=== PATIENT | female | born 1985 | race Caucasian/White ===

== ENCOUNTER → 2016-11-08 | Outpatient (REF) | payer OTHER | LOC: M LAB REF 09:22 | PROVIDERS: ATTEND Physician Assistant Medical | DX: B34.9 Viral infection, unspecified (principal) ==

== ENCOUNTER → 2017-01-27 | Outpatient (REF) | payer OTHER ==
[2017-01-27 20:41] LABS: MEAN CORPUSCULAR HEMOGLOBIN 29.3 pg (27.0-33.0); MEAN CORPUSCULAR HGB CONC 32.5 g/dl (32.0-36.5); MEAN CORPUSCULAR VOLUME 90.2 fl (80.0-96.0); RED CELL DISTRIBUTION WIDTH 13.2 % (11.5-14.5)
[2017-01-27 20:55] LABS: VITAMIN B12 LEVEL 564 PG/ML (247-911)
[2017-01-27 21:17] LABS: ALBUMIN 4.2 GM/DL (3.2-5.2); ALBUMIN/GLOBULIN RATIO 1.35 (1.00-1.93); ALKALINE PHOSPHATASE 69 U/L (45-117); ALT/SGPT 26 U/L (12-78); ANION GAP 7 MEQ/L (8-16); AST/SGOT 16 U/L (15-37); BILIRUBIN,TOTAL 0.5 MG/DL (0.2-1.0); BLOOD UREA NITROGEN 17 MG/DL (7-18); CALCIUM LEVEL 9.3 MG/DL (8.5-10.1); CARBON DIOXIDE LEVEL 31 MEQ/L (21-32); CHLORIDE LEVEL 103 MEQ/L (98-107); CREATININE FOR GFR 0.83 MG/DL (0.55-1.02); FREE T4 0.93 NG/DL (0.76-1.46); GLOMERULAR FILTRATION RATE > 60.0 (>60); GLUCOSE, FASTING 79 MG/DL (70-105); POTASSIUM SERUM 4.1 MEQ/L (3.5-5.1); SODIUM LEVEL 141 MEQ/L (136-145); TOTAL PROTEIN 7.3 GM/DL (6.4-8.2)
== END ==
LOC: M SFHCLERA 16:06
PROVIDERS: ATTEND Family Medicine
DX: R51 Headache (principal); R41.3 Other amnesia; R10.84 Generalized abdominal pain

== ENCOUNTER → 2017-02-12 | Outpatient (CLI) | payer OTHER ==
--- NOTE | 2017-02-12 12:49 | REP ---
REASON: Generalized abdominal pain. Question ventral rent. Multiple sonographic images superior to the umbilicus show a potential rent difficult to evaluate by ultrasound. This appears to have mesentery within it. The aperture measures approximately 6 mm. IMPRESSION: Possible tiny ventral hernia. CT is recommended for confirmation. Signed by Timothy Bonilla DO 02/12/2017 02:47 P
== END ==
LOC: M RAD 08:40
PROVIDERS: ATTEND Family Medicine
DX: K43.9 Ventral hernia without obstruction or gangrene (principal)

== ENCOUNTER → 2017-03-12 | Outpatient (CLI) | payer MEDICAID, OTHER ==
--- NOTE | 2017-03-12 13:34 | REP ---
MR BRAIN WITHOUT CONTRAST: HISTORY: Memory difficulty. COMPARISON: 04/20/2013. There are no areas of abnormal signal intensity in the brain. There is no intraparenchymal hemorrhage, infarct, mass, or midline shift. The ventricular system is normal in appearance. There is no extracerebral collection. Mucosal thickening is present in the ethmoid and left maxillary sinuses. IMPRESSION: There is no intracranial lesion. Signed by Trent Grossman MD 03/12/2017 01:37 P
== END ==
LOC: M PLARAD 11:24
PROVIDERS: ATTEND Family Medicine
DX: R41.3 Other amnesia (principal)

== ENCOUNTER 2017-05-14 06:04 | Day surgery (SDC) | payer OTHER ==
[~2017-05-14] VITALS: Ht 172.7 cm; Wt 73.0 kg
[2017-05-14] MEDS ORDERED: LIDOCAINE 1% MDV 20ML VIAL SQ ONE (06:30)
[2017-05-14] MEDS ORDERED: LR 1,000 ML IV SCH ×2 (06:30→10:00)
[2017-05-14] MEDS ORDERED: LR 1,000 ML IV ONE (06:30)
[2017-05-14] MEDS ORDERED: IBUP-1114 PO (06:32)
[2017-05-14] MEDS ORDERED: SCOPOLAMINE 1.5 MG TRANSDERMAL As Ordered ONE (06:51)
[2017-05-14] MEDS ORDERED: ONDANSETRON 4MG/2ML VIAL (J2405) As Ordered ONE ×2 (06:55→09:48)
[2017-05-14] MEDS ORDERED: PROPOFOL 200 MG/20 ML VIAL As Ordered ONE (06:55)
[2017-05-14] MEDS ORDERED: ROCURONIUM BROMIDE 50 MG/5 ML VIAL/SYRINGE As Ordered ONE (06:55)
[2017-05-14] MEDS ORDERED: LIDOCAINE 2% INJ 100 MG/5 ML SDV (FOR ANES.) As Ordered ONE (06:55)
[2017-05-14] MEDS ORDERED: dexameTHASONE 4 MG/ML 1ML VIAL (J1100) As Ordered ONE (06:55)
[2017-05-14 06:58] LABS: CONTROL LINE UCG INT CTR LINE PRESENT
[2017-05-14] MEDS ORDERED: SCOPOLAMINE 1.5 MG TRANSDERMAL TOP ONE (07:00)
[2017-05-14] MEDS ORDERED: MIDAZOLAM INJ 2 MG/2 ML VIAL (J2250) As Ordered ONE (07:06)
[2017-05-14] MEDS ORDERED: fentaNYL 250 MCG/5 ML INJECTION (J3010) As Ordered ONE (07:06)
[2017-05-14] MEDS ORDERED: BUPIVACAINE HCL 0.25% 30 ML VIAL As Ordered ONE ×2 (07:15→07:48)
[2017-05-14] MEDS ORDERED: LIDOCAINE 1% SDV INJ 30 ML VIAL As Ordered ONE (07:15)
[2017-05-14] MEDS ORDERED: GLYCOPYRROLATE INJ 0.2 MG/ML 2 ML VIAL As Ordered ONE (08:33)
[2017-05-14] MEDS ORDERED: NEOSTIGMINE 1MG/ML 5 ML SYRINGE (J2710) As Ordered ONE (08:33)
[2017-05-14] MEDS ORDERED: KETOROLAC 60 MG/2 ML VIAL (J1885) As Ordered ONE (08:40)
[2017-05-14] MEDS ORDERED: HYDROmorphone HCL 2 MG/ML 1ML VIAL (J1170) As Ordered ONE (09:01)
--- NOTE | 2017-05-14 09:14 | ROOPDOC ---
[facility] Report Of Operation Report of Operation DATE OF PROCEDURE: 05/14/17 PREPROCEDURE DIAGNOSES: umbilical hernia. POSTPROCEDURE DIAGNOSES: umbilical hernia PROCEDURE: Laparoscopic Umbilical Hernia Repair. SURGEON: Isamar Rivera MD co-surgeon: Joel Rg MD ANESTHESIA: general. ESTIMATED BLOOD LOSS: Approximately 10 mL. COMPLICATIONS: none REMARKS: PROCEDURE NOTE: A concurrent procedure for bilateral tubal ligation is performed by Dr. Rg. Patient has a small subcentimeter fascial defect just above the umbilicus. There was some incarcerated preperitoneal fat tissue that was reduced back into the abdomen. Moderate diastases of upper midline muscle with thinning of the midline secondary to this but no clear hernia defect on the upper abdomen. DESCRIPTION OF PROCEDURE: She was given a dose of Ancef 2 g IV preoperatively for wound prophylaxis. Patient was brought to the operating room, placed supine on the table. Sequential compression device placed for DVT prophylaxis. General endotracheal anesthesia started. The abdomen prepped and draped in usual sterile fashion. After a surgical timeout, we began our surgery Entry into the abdomen done via a left upper quadrant subcostal incision. A Veress needle inserted into the abdomen. Proper placement confirmed with saline drop technique. CO2 insufflation done to a pressure of 15 mmHg. Using the same incision 5 mm Visiport was placed under direct vision of the laparoscope. Diagnostic laparoscopy the nodularity above the umbilical cleft was noted. Some preperitoneal fat tissue was reduced back into the abdomen. There is moderate thickening of the midline on the upper abdomen also on the lower abdomen secondary to diastases. After clearing out the area where the nodularity was found a small subcentimeter fascial defect is noted. This was mildly enlarged to fully reduce back the preperitoneal contents into the abdomen. A second 8 mm working port was placed over the left lower quadrant area. At this point Dr. Rg perform the bilateral upper scopic tubal ligation. He will separately dictate the details of the procedure. After the tubal ligation I continued on with my surgery. The contents of the hernia dissected free. The surrounding tissues were freed from the hernia edge. The lower portion of the falciform ligament was detached from the abdominal wall. I look for semblance of another hernia over the area did not find any fascial defect.. There was a thin fascial bridge partially covering the area of the defect just above the umbilicus this was opened up to evaluate the tissues around the defect into fully reduced the contents of the hernia. He also enlarged the fascial defect to fully reduce the preperitoneal fat tissue. In the end we ended up with a defect about 1.5 cm. This was located just above the umbilical skin cleft which is also thinned out. I chose a 9 cm Parietex Composite round mesh. Transabdominal sutures placed at this 6 and 12 oclock position at the edge of the mesh. The rough side of the mesh was marked for identification inside the abdomen. This is rolled tightly and placed into the abdomen. This was positioned to centered on the hernia defect. Transabdominal suture passer used to retrieve the sutures to position the mesh. Once adequate overlap of the mesh to the hernia defect was ensured. 2 rows of secure strap Vicryl tacks then placed to secure the mesh to the abdominal wall. The outer tacks were at the edge of the mesh and the inner tacks were chest outside of the hernia defect. We inspected the abdomen for hemostasis. Surveyed the abdomen for any injury. Once assured, the abdomen was deflated and all ports removed. Skin incisions closed with 4-0 Monocryl subcuticular fashion. Steri-Strips gauze dressing and Tegaderm used for dressing at the incisions. Patients promptly awake and extubated and brought to the recovery room in stable condition. All counts of sponges and instruments verified to be correct. DWAYNE RIVERA MD May 14, 2017 09:14
[2017-05-14] MEDS ORDERED: fentaNYL 100 MCG/2 ML INJECTION (J3010) As Ordered ONE (09:48)
[2017-05-14] MEDS: fentaNYL 100 MCG/2 ML INJECTION (J3010) IV PRN ×2 (09:50→09:58)
[2017-05-14] MEDS ORDERED: PERCOCET 5MG/325MG TAB PO PRN (10:00)
[2017-05-14] MEDS ORDERED: KETOROLAC 30 MG/ML VIAL (J1885) IV PRN (10:00)
[2017-05-14] MEDS ORDERED: HYDROmorphone HCL 1 MG/ML SYRINGE (J1170) IV PRN (10:00)
[2017-05-14] MEDS ORDERED: NORCO, ANEXSIA 5/325MG TABLET (HYDROcodone/ACETAMINOPHEN) PO PRN ×2 (10:00)
[2017-05-14] MEDS ORDERED: ONDANSETRON 4MG/2ML VIAL (J2405) IV PRN ×2 (10:00)
[2017-05-14 14:15] VITALS: BP 118/60
--- NOTE | 2017-05-15 08:16 | RO ---
DATE OF PROCEDURE: 05/14/2017 PREPROCEDURE DIAGNOSIS: Undesired fertility. POSTPROCEDURE DIAGNOSIS: Undesired fertility. PROCEDURE: Laparoscopic tubal ligation. SURGEON: Dr. Trent Rg FOOD AND BEVERAGE COORDINATOR: ANESTHESIA: General endotracheal. ESTIMATED BLOOD LOSS: Minimal. FINDINGS: Normal appearing pelvis, normal uterus, fallopian tubes and ovaries. Small umbilical hernia noted. COMPLICATIONS: None. DESCRIPTION OF PROCEDURE: The patient was taken to the operating room where general endotracheal anesthesia was induced. She was prepped and draped in a sterile fashion in the dorsal lithotomy position. The procedure was initiated by Dr. Rui Rivera who was repairing an umbilical hernia at the same time as the tubal sterilization procedure. For details of the hernia repair as well as insertion of the laparoscopic ports, please see Dr. Rivera's note. A blunt probe was used to survey pelvic structures. A Falope Ring was applied to the mid portion of the left fallopian tube without difficulty. The right fallopian tube was noted to be mildly dilated. Attempt was made to place a Falope Ring on the right fallopian tube; however, transection of the tube occurred and the Falope Ring was unable to be applied. Filshie clips were then utilized. A Filshie clip was placed at the mid portion of each fallopian tube without difficulty. An excellent application was noted. The Filshie clip applicator was removed. The remainder of the procedure was completed by Dr. Rivera.
== END 2017-05-14 14:15 | disposition home or self-care (01) ==
LOC: M SDC 06:04
PROVIDERS: ATTEND Surgery
DX: K42.9 Umbilical hernia without obstruction or gangrene (principal); Z30.2 Encounter for sterilization; K58.9 Irritable bowel syndrome, unspecified; R06.83 Snoring; Z88.5 Allergy status to narcotic agent; Z91.013 Allergy to seafood
CPT/HCPCS: 36415; 49652; 58671; 84703; 85014; 85018; C1781

== ENCOUNTER 2017-09-24 23:44 | Emergency (ER) | payer OTHER ==
[~2017-09-24] VITALS: Ht 172.7 cm; Wt 75.0 kg
[2017-09-24 23:44] VITALS: BP 114/68
[~2017-09-24 23:44] MED LIST: IBUP-1114 PO
== END 2017-09-25 02:19 | disposition left against medical advice (07) ==
LOC: M ED 23:44
DX: Z53.21 Procedure and treatment not carried out due to patient leaving prior to being seen by health care provider (principal)

== ENCOUNTER → 2018-02-25 | Outpatient (CLI) | payer OTHER, MEDICAID | LOC: M LRY 11:20 | DX: M25.532 Pain in left wrist (principal) | CPT/HCPCS: 73110 ==

== ENCOUNTER → 2019-01-26 | Outpatient (REF) | payer OTHER ==
[2019-01-27 10:17] LABS: HSV TYPE I IgG SPECIFIC >62.20 index (0.00-0.90); HSV TYPE II IgG SPECIFIC <0.91 index (0.00-0.90)
[2019-01-27 10:52] LABS: HIV 1&2 SCREEN CENTAUR NEGATIVE (NEGATIVE)
== END ==
LOC: M LAB REF 12:08
PROVIDERS: ATTEND Nurse Practitioner Women's Health
DX: O92.6 Galactorrhea (principal); Z72.51 High risk heterosexual behavior

== ENCOUNTER → 2020-11-11 | Outpatient (CLI) | payer OTHER ==
[2020-11-11 13:09] LABS: BASO % 0.3 % (0.0-1.0); EOS # 0.2 10^3/uL (0.0-0.5); EOS % 3.6 % (0.0-3.0); HEMATOCRIT 40.9 % (36.0-47.0); HEMOGLOBIN 13.2 g/dl (12.0-15.5); LYMPH # 1.9 10^3/uL (1.5-5.0); LYMPH % 32.2 % (24.0-44.0); MEAN CORPUSCULAR HEMOGLOBIN 28.3 pg (27.0-33.0); MEAN CORPUSCULAR HGB CONC 32.3 g/dl (32.0-36.5); MEAN CORPUSCULAR VOLUME 87.6 fl (80.0-96.0); MONO # 0.4 10^3/uL (0.0-0.8); MONO % 7.1 % (0.0-5.0); NEUTROPHILS # 3.3 10^3/uL (1.5-8.5); NEUTROPHILS % 56.5 % (36.0-66.0); PLATELET COUNT, AUTOMATED 187 10^3/uL (150-450); RED BLOOD COUNT 4.67 10^6/uL (4.00-5.40); WHITE BLOOD COUNT 5.8 10^3/uL (4.0-10.0)
[2020-11-11 14:37] LABS: ALT/SGPT 21 U/L (12-78); BILIRUBIN,TOTAL 0.4 MG/DL (0.2-1.0); BLOOD UREA NITROGEN 17 MG/DL (7-18); CALCIUM LEVEL 9.1 MG/DL (8.5-10.1); CARBON DIOXIDE LEVEL 26 MEQ/L (21-32); CHLORIDE LEVEL 108 MEQ/L (98-107); GLOMERULAR FILTRATION RATE > 60.0 (>60); GLUCOSE, FASTING 88 MG/DL (70-100); POTASSIUM SERUM 4.2 MEQ/L (3.5-5.1); SODIUM LEVEL 141 MEQ/L (136-145); TOTAL PROTEIN 7.1 GM/DL (6.4-8.2); VITAMIN B12 LEVEL 973 PG/ML (247-911)
== END ==
LOC: M LAB 12:04
PROVIDERS: ATTEND Family Medicine
DX: R43.2 Parageusia (principal)

== ENCOUNTER → 2020-11-16 | Outpatient (CLI) | payer OTHER | LOC: M LAB 12:38 | PROVIDERS: ATTEND Family Medicine | DX: R43.2 Parageusia (principal) ==

== ENCOUNTER → 2020-11-25 | Outpatient (CLI) | payer OTHER ==
[2020-11-25 17:21] LABS: BASO % 0.3 % (0.0-1.0); EOS # 0.3 10^3/uL (0.0-0.5); EOS % 4.5 % (0.0-3.0); HEMOGLOBIN 12.7 g/dl (12.0-15.5); LYMPH # 2.3 10^3/uL (1.5-5.0); LYMPH % 34.9 % (24.0-44.0); MEAN CORPUSCULAR HEMOGLOBIN 28.1 pg (27.0-33.0); MEAN CORPUSCULAR HGB CONC 31.8 g/dl (32.0-36.5); MEAN CORPUSCULAR VOLUME 88.5 fl (80.0-96.0); MONO # 0.5 10^3/uL (0.0-0.8); MONO % 7.4 % (2.0-8.0); NEUTROPHILS # 3.4 10^3/uL (1.5-8.5); NEUTROPHILS % 52.6 % (36.0-66.0); PLATELET COUNT, AUTOMATED 199 10^3/uL (150-450); RED BLOOD COUNT 4.52 10^6/uL (4.00-5.40); WHITE BLOOD COUNT 6.5 10^3/uL (4.0-10.0)
[2020-11-25 18:03] LABS: ERYTHROCYTE SEDIMENTATION RATE 3 mm/hr (0-20)
== END ==
LOC: M LAB 16:52
PROVIDERS: ATTEND Family Medicine
DX: R76.8 Other specified abnormal immunological findings in serum (principal)

== ENCOUNTER → 2021-02-03 | Outpatient (REF) | payer OTHER ==
[2021-02-03 12:25] LABS: APPEARANCE, URINE CLEAR (CLEAR); BACTERIA, URINE AUTO NEGATIVE (NEGATIVE); BILIRUBIN, URINE AUTO NEGATIVE (NEGATIVE); BLOOD, URINE BLOOD 1+ (NEGATIVE); COLOR, URINE YELLOW (YELLOW); GLUCOSE, URINE (UA) AUTO NEGATIVE (NEGATIVE); KETONE, URINE AUTO NEGATIVE (NEGATIVE); LEUKOCYTE ESTERASE, URINE AUTO NEGATIVE (NEGATIVE); NITRITE, URINE AUTO NEGATIVE (NEGATIVE); PROTEIN, URINE AUTO NEGATIVE (NEGATIVE); RBC, URINE AUTO 0 /HPF (0-3); SPECIFIC GRAVITY URINE AUTO 1.016 (1.002-1.035); SQUAMOUS EPITHELIAL CELL UR AU 1 /HPF (0-6); UROBILINOGEN, URINE AUTO 0.2 mg/dL (0.0-2.0); WBC, URINE AUTO 0 /HPF (0-3)
[2021-02-03 14:03] LABS: TOTAL PROTEIN,RANDOM URINE 6.4 MG/DL (0.0-12.0)
[2021-02-03 16:28] LABS: TOTAL 25(OH) VITAMIN D 19.4 NG/ML (30.0-100.0)
== END ==
LOC: M SFHCRHEU 09:53
PROVIDERS: ATTEND Internal Medicine
DX: R76.8 Other specified abnormal immunological findings in serum (principal)

== ENCOUNTER → 2021-02-28 | Outpatient (CLI) | payer OTHER ==
--- NOTE | 2021-03-04 14:59 | SLEEPCENT ---
DIAGNOSTIC HOME SLEEP STUDY DATE: 02/28/2021 ORDERED BY: Lindsey Sam M.D. Diagnostic home sleep testing was performed due to concern for the obstructive sleep apnea syndrome in this patient with a history of fatigue. For testing, a nocturnal T3 respiratory monitoring device was used. Continuous record was made of pulse, oxygen saturation, air flow, chest and abdominal strain, and body position. 9 hours and 59 minutes of data were reviewed. There were 9 hours and 1 minute marked as time in bed. During the interval marked time in bed, there were 40 respiratory events identified of 10 seconds in duration or greater for a respiratory event index 4.4. The events were more frequent in the supine posture. Baseline pulse rate was 58. Pulse rate range 42 to 96. Baseline saturation was 95%. Saturations fell to 92%. Testing was performed in both the supine and non-supine positions. IMPRESSION: Borderline diagnostic home sleep testing with respiratory patterning and respiratory event index of 4.4 is suggestive of the obstructive sleep apnea syndrome. Generally greater than 5 events/hr. is considered diagnostic in symptomatic patients who undergo in-lab testing. RECOMMENDATION: As the events were associated with supine posture, sleep position retraining for avoidance of the supine posture is recommended. Should sleep symptoms persist, referral for formal nocturnal polysomnography may be reasonable, as this type of testing is more sensitive to identify mild obstructive sleep apneic disease. AD
== END ==
LOC: M SLEEP HO 09:08
PROVIDERS: ATTEND Internal Medicine
DX: R53.83 Other fatigue (principal)

== ENCOUNTER → 2021-03-05 | Outpatient (CLI) | payer OTHER ==
--- NOTE | 2021-03-05 11:36 | REPPI ---
INDICATION: S89.91XA INJURY OF RIGHT KNEE, INITIAL ENCOUNTER COMPARISON: None. TECHNIQUE: AP, lateral, bilateral oblique and sunrise views. FINDINGS: The osseous structures and joint spaces are intact and normal. There is no evidence for acute fracture or dislocation. No joint effusion is appreciated. Surrounding soft tissues are unremarkable. No subcutaneous emphysema or radiodense foreign body. IMPRESSION: Normal examination. No acute fracture or dislocation. <Electronically signed by Sai Stoddard > 03/05/21 [id number]
== END ==
LOC: M PLAIMG 11:10
PROVIDERS: ATTEND Nurse Practitioner Family
DX: S89.91XA Unspecified injury of right lower leg, initial encounter (principal); W18.30XA Fall on same level, unspecified, initial encounter; Y92.009 Unspecified place in unspecified non-institutional (private) residence as the place of occurrence of the external cause

== ENCOUNTER → 2021-04-29 | Outpatient (CLI) | payer OTHER ==
--- NOTE | 2021-04-29 18:41 | REP ---
INDICATION: UNSPECIFIED INJURY OF LEFT FOOT, INITIAL ENCOUNTER. COMPARISON: None. TECHNIQUE: Four views FINDINGS: Lateral view shows no heel spur. Talus and calcaneus without fracture or focal lesion. There articulations with the tarsal bones were unremarkable tarsal bones and metatarsals are also without fracture or focal lesion. The MTP, IP joints and the phalanges are without definite fracture. Incidental note is made of fusion of the middle and distal phalanges of the 5th toe, a common anatomic variation. IMPRESSION: No visible or displaced fracture, subluxation or focal bone lesion about the left foot <Electronically signed by Torin Bolton > 04/29/21 [id number]
== END ==
LOC: M PLAIMG 15:37
PROVIDERS: ATTEND Nurse Practitioner Family
DX: S99.922A Unspecified injury of left foot, initial encounter (principal); W18.30XA Fall on same level, unspecified, initial encounter; Y92.009 Unspecified place in unspecified non-institutional (private) residence as the place of occurrence of the external cause

== ENCOUNTER → 2021-05-20 | Outpatient (REF) | payer OTHER ==
[2021-05-20 17:37] LABS: BASO % 0.5 % (0.0-1.0); EOS # 0.1 10^3/uL (0.0-0.5); EOS % 1.9 % (0.0-3.0); HEMATOCRIT 43.2 % (36.0-47.0); HEMOGLOBIN 14.2 g/dl (12.0-15.5); LYMPH # 1.9 10^3/uL (1.5-5.0); LYMPH % 31.9 % (24.0-44.0); MEAN CORPUSCULAR HEMOGLOBIN 29.2 pg (27.0-33.0); MEAN CORPUSCULAR HGB CONC 32.9 g/dl (32.0-36.5); MEAN CORPUSCULAR VOLUME 88.9 fl (80.0-96.0); MONO # 0.5 10^3/uL (0.0-0.8); MONO % 8.3 % (2.0-8.0); NEUTROPHILS # 3.4 10^3/uL (1.5-8.5); NEUTROPHILS % 57.1 % (36.0-66.0); PLATELET COUNT, AUTOMATED 196 10^3/uL (150-450); RED BLOOD COUNT 4.86 10^6/uL (4.00-5.40); WHITE BLOOD COUNT 5.9 10^3/uL (4.0-10.0)
[2021-05-20 18:15] LABS: FREE T4 0.89 NG/DL (0.76-1.46); HCG, SERUM QUANTITATIVE < 1.0 MIU/ML
[2021-05-20 18:18] LABS: LUTEINIZING HORMONE 6.5 mIU/mL
[2021-05-20 18:19] LABS: FOLLICLE STIMULATING HORMONE 7.9 mIU/mL
== END ==
LOC: M LAB REF 17:18
PROVIDERS: ATTEND Obstetrics & Gynecology
DX: N92.0 Excessive and frequent menstruation with regular cycle (principal)

== ENCOUNTER → 2021-06-05 | Outpatient (CLI) | payer OTHER ==
--- NOTE | 2021-06-06 05:39 | REP ---
INDICATION: CERVICALGIA COMPARISON: None. TECHNIQUE: AP, lateral, and swimmers views. FINDINGS: Alignment and kyphosis is maintained. Vertebral bodies intact. No acute fracture / compression injury or subluxation. No degenerative changes. Paravertebral soft tissues are normal. IMPRESSION: Normal thoracic spine series. <Electronically signed by Sai Stoddard > 06/06/21 [id number]
--- NOTE | 2021-06-06 05:42 | REP ---
INDICATION: CERVICALGIA. COMPARISON: None. TECHNIQUE: AP, lateral, flexion/extension, bilateral oblique, and open-mouth views of the cervical spine FINDINGS: Alignment and lordosis maintained. Vertebral bodies including posterior elements and spinous processes are intact. No acute fracture/compression injury or subluxation. Disc spaces are relatively symmetric and well maintained although mild disc space narrowing at C7-T1 cannot be excluded. Neural foramen are patent bilaterally. Open mouth view demonstrates normal C1-C2 articulation and odontoid process. IMPRESSION: Mild minimal disc space narrowing at C7-T1 cannot be excluded. Otherwise normal cervical spine radiograph series. <Electronically signed by Sai Stoddard > 06/06/21 [id number]
== END ==
LOC: M PLALAB 15:51
PROVIDERS: ATTEND Family Medicine
DX: M54.2 Cervicalgia (principal)

== ENCOUNTER → 2021-07-28 | Outpatient (REF) | payer OTHER | LOC: M SFHCPLAZ 13:08 | PROVIDERS: ATTEND Physician Assistant | DX: R05.9 Cough, unspecified (principal) ==

== ENCOUNTER → 2021-09-08 | Outpatient (REF) | payer OTHER | LOC: M SFHCRHEU 10:32 | PROVIDERS: ATTEND Internal Medicine | DX: E55.9 Vitamin D deficiency, unspecified (principal) ==

== ENCOUNTER → 2022-03-16 | Outpatient (REF) | payer OTHER ==
[2022-03-17 23:09] LABS: ANA (HEP2) Positive (.)
== END ==
LOC: M SFHCRHEU 11:37
PROVIDERS: ATTEND Internal Medicine
DX: R76.8 Other specified abnormal immunological findings in serum (principal); E55.9 Vitamin D deficiency, unspecified

== ENCOUNTER → 2022-12-17 | Outpatient (CLI) | payer OTHER ==
[~2022-12-17] MED LIST changes: +AMIT25TA17 PO; +DICY10CA13 PO; +SERT25TA21 PO
== END ==
LOC: M PLALAB 11:46
PROVIDERS: ATTEND Student in an Organized Health Care Education/Training Program
DX: S89.92XA Unspecified injury of left lower leg, initial encounter (principal); X58.XXXA Exposure to other specified factors, initial encounter; Y92.9 Unspecified place or not applicable; Y93.9 Activity, unspecified; Y99.9 Unspecified external cause status

== ENCOUNTER → 2022-12-24 | Outpatient (CLI) | payer OTHER | LOC: M LABSMTC 08:59 | PROVIDERS: ATTEND Anesthesiology | DX: Z01.812 Encounter for preprocedural laboratory examination (principal) ==

== ENCOUNTER 2022-12-29 10:54 | Day surgery (SDC) | payer OTHER ==
[~2022-12-29] VITALS: Ht 172.7 cm; Wt 99.2 kg
[~2022-12-29 10:54] MED LIST changes: +NS 1,000 ML IV ONE
[2022-12-29] MEDS ORDERED: fentaNYL 100 MCG/2 ML INJECTION As Ordered ONE (13:33)
[2022-12-29] MEDS ORDERED: propofoL 200 MG/20 ML VIAL As Ordered ONE ×3 (13:34→13:58)
[2022-12-29] MEDS ORDERED: LIDOCAINE 2% 100MG/5ML SDV (FOR ANES.) As Ordered ONE (13:34)
[2022-12-29 14:25] VITALS: BP 112/89
== END 2022-12-29 14:36 | disposition home or self-care (01) ==
LOC: M OPP 10:54
PROVIDERS: ATTEND Internal Medicine Gastroenterology
DX: K64.8 Other hemorrhoids (principal); K63.89 Other specified diseases of intestine; K92.1 Melena; R12 Heartburn; G47.30 Sleep apnea, unspecified; F32.9 Major depressive disorder, single episode, unspecified; Z79.899 Other long term (current) drug therapy; Z88.5 Allergy status to narcotic agent; Z91.013 Allergy to seafood; Z80.1 Family history of malignant neoplasm of trachea, bronchus and lung
CPT/HCPCS: 43239; 45380; 88305; J3010

== ENCOUNTER → 2023-01-15 | Outpatient (CLI) | payer OTHER ==
[~2023-01-15] MED LIST changes: -NS 1,000 ML IV ONE
== END ==
LOC: M PLARAD 12:40
PROVIDERS: ATTEND Orthopaedic Surgery
DX: M25.562 Pain in left knee (principal); M23.307 Other meniscus derangements, unspecified meniscus, left knee; M25.462 Effusion, left knee; M71.22 Synovial cyst of popliteal space [Baker], left knee; M17.12 Unilateral primary osteoarthritis, left knee; M94.262 Chondromalacia, left knee

== ENCOUNTER → 2024-10-26 | Outpatient (CLI) | payer OTHER, SELFPAY ==
[~2024-10-26] MED LIST changes: -AMIT25TA17 PO; +AMIT25TA19 PO; +DICY-61 PO; -DICY10CA13 PO
[2024-10-26 14:21] LABS: BASO % 0.6 % (0.0-1.0); EOS # 0.2 10^3/uL (0.0-0.5); EOS % 4.3 % (0.0-3.0); HEMATOCRIT 41.8 % (36.0-47.0); HEMOGLOBIN 13.7 g/dl (12.0-15.5); LYMPH # 1.9 10^3/uL (1.5-5.0); LYMPH % 35.3 % (24.0-44.0); MEAN CORPUSCULAR HEMOGLOBIN 28.8 pg (27.0-33.0); MEAN CORPUSCULAR HGB CONC 32.8 g/dl (32.0-36.5); MEAN CORPUSCULAR VOLUME 87.8 fl (80.0-96.0); MONO # 0.5 10^3/uL (0.0-0.8); MONO % 8.7 % (2.0-8.0); NEUTROPHILS # 2.8 10^3/uL (1.5-8.5); NEUTROPHILS % 50.7 % (36.0-66.0); PLATELET COUNT, AUTOMATED 221 10^3/uL (150-450); RED BLOOD COUNT 4.76 10^6/uL (4.00-5.40); WHITE BLOOD COUNT 5.4 10^3/uL (4.0-10.0)
[2024-10-26 14:50] LABS: ALBUMIN 3.9 G/DL (3.2-5.2); ALKALINE PHOSPHATASE 70 U/L (35-104); ALT/SGPT 26 U/L (7.0-40); AST/SGOT 11 U/L (<34); BILIRUBIN,TOTAL 0.4 MG/DL (0.3-1.2); BLOOD UREA NITROGEN 24 MG/DL (9-23); CALCIUM LEVEL 9.4 MG/DL (8.5-10.1); CARBON DIOXIDE LEVEL 30 MMOL/L (20-31); CHLORIDE LEVEL 104 MMOL/L (98-107); CHOLESTEROL LEVEL 207 MG/DL (<200); CHOLESTEROL RISK RATIO 2.74 (<5); CREATININE FOR GFR 0.82 MG/DL (0.55-1.30); GLOMERULAR FILTRATION RATE > 60.0 (>60); GLUCOSE, FASTING 76 MG/DL (60-100); HDL CHOLESTEROL 75.3 MG/DL (>40); LDL CHOLESTEROL 91.7 MG/DL (<100); NON-HDL-C 131.7 MG/DL; POTASSIUM SERUM 4.4 MMOL/L (3.5-5.1); SODIUM LEVEL 140 MMOL/L (136-145); TOTAL PROTEIN 7.1 G/DL (5.7-8.2); TRIGLYCERIDES LEVEL 200 MG/DL (<150)
[2024-10-26 14:51] LABS: FOLLICLE STIMULATING HORMONE 7.7 mIU/ML; THYROID STIMULATING HORMONE 1.926 uIU/ML (0.55-4.78)
[2024-10-26 14:52] LABS: LUTEINIZING HORMONE 3.6 mIU/ML; PROLACTIN 6.64 NG/ML
[2024-10-26 14:53] LABS: TOTAL 25(OH) VITAMIN D 27.1 NG/ML (20.0-100.0)
[2024-10-26 15:20] LABS: HCG, SERUM QUALITATIVE NEGATIVE (NEGATIVE)
[2024-10-26 16:00] LABS: HEMOGLOBIN A1c 5.2 % (4.0-6.0)
== END ==
LOC: M PLALAB 11:35
PROVIDERS: ATTEND Family Medicine
DX: Z00.00 Encounter for general adult medical examination without abnormal findings (principal); N92.6 Irregular menstruation, unspecified; R79.89 Other specified abnormal findings of blood chemistry

== ENCOUNTER → 2025-10-02 | Outpatient (REF) | payer OTHER ==
[2025-10-02 17:33] LABS: BASO # 0.0 10^3/uL (0.0-0.2); BASO % 0.5 % (0.0-1.0); EOS # 0.2 10^3/uL (0.0-0.5); EOS % 4.2 % (0.0-3.0); LYMPH # 1.9 10^3/uL (1.5-5.0); LYMPH % 33.0 % (24.0-44.0); MONO # 0.5 10^3/uL (0.0-0.8); MONO % 8.6 % (2.0-8.0); NEUTROPHILS # 3.0 10^3/uL (1.5-8.5); NEUTROPHILS % 53.5 % (36.0-66.0); PLATELET COUNT, AUTOMATED 234 10^3/uL (150-450)
[2025-10-02 17:37] LABS: ALT/SGPT 26 U/L (7.0-40); AST/SGOT 17 U/L (<34); CALCIUM LEVEL 9.3 MG/DL (8.5-10.1); CARBON DIOXIDE LEVEL 30 MMOL/L (20-31); CHLORIDE LEVEL 104 MMOL/L (98-107); CREATININE FOR GFR 0.77 MG/DL (0.55-1.30); GLOMERULAR FILTRATION RATE > 90.0 (>58); POTASSIUM SERUM 3.8 MMOL/L (3.5-5.1); SODIUM LEVEL 140 MMOL/L (136-145)
[2025-10-02 17:38] LABS: FREE T4 1.00 NG/DL (0.89-1.76)
[2025-10-02 18:05] LABS: ESTIMATED AVERAGE GLUCOSE 108.0 MG/DL (60-110)
== END ==
LOC: M SFHCLERA 14:43
PROVIDERS: ATTEND Family Medicine
DX: G47.10 Hypersomnia, unspecified (principal); R53.83 Other fatigue; E66.812 Obesity, class 2; Z68.36 Body mass index [BMI] 36.0-36.9, adult